=== PATIENT | female | born 1960 | race Caucasian/White ===

== ENCOUNTER 2016-03-16 09:18 | Outpatient (CLI) | payer MEDICARE, MEDICAID ==
[~2016-03-16] VITALS: Ht 175.3 cm; Wt 70.0 kg
[~2016-03-16 09:18] MED LIST: ASPIRIN 81M81 MG/TA2 PO; DIFLUCAN 100MG100 MG PO; DITROPAN 5MG TAB5 MG PO; INVANZ INJ1 G/VIAL IJ; KLONOPIN2 MG PO; LEVOXYL0.05 MG PO; LIORESAL20 MG PO; LIPITOR 10MG10 MG PO; LOVENOX 4040 MG/0.4 SQ; MACROBID100 MG PO; MIRALAX PA17 GM/Dose PO; MULTIPLE VITAMI1 CAP PO; NEURONTIN600 MG/TAB PO; PERCOCET 325 MG1 TAB PO; REMERON30 MG PO; TYLENOL EXTRA500 M1 PO; ULTRAM 50MG TAB50 MG PO; VANCOCIN HCL1 GM IV; VITAMIN C500 MG PO; ZOCOR 10MG10 MG PO; ZOLOFT 100MG100 MG PO
[2016-03-16 09:53] VITALS: BP 127/81; PULSE 93; TEMP 98.3
[2016-03-28] MEDS ORDERED: ZANAFLEX CAPSULE2 MG PO (11:13)
[2016-03-28] MEDS ORDERED: FERRIMIN 150150 M1 PO (11:14)
[2016-03-28] MEDS ORDERED: DAZIDOX10 MG PO (11:15)
[2016-03-28] MEDS ORDERED: XANAX 1MG1 MG (11:16)
[2016-03-28] MEDS ORDERED: KLOR-CON M2020 MEQ PO (11:17)
[2016-03-28] MEDS ORDERED: CULTURELLE IMM1 EACH PO (11:18)
[2016-03-28] MEDS ORDERED: GAS RELIEF MAX166 M1 PO (11:20)
[2016-03-28] MEDS ORDERED: MIRALAX PA17 GM/Dose PO ×2 (11:22)
[2016-03-28] MEDS ORDERED: PROTONIX 40MG T40 MG PO (11:23)
[2016-03-28] MEDS ORDERED: REGLAN 5MG T5 MG/TAB PO (11:24)
[2016-03-28] MEDS ORDERED: ABREVA10% TOP (11:25)
== END 2016-03-16 10:08 | disposition home or self-care (01) ==
LOC: COL.RAD 09:18
DX: Z01.818 Encounter for other preprocedural examination (principal)

== ENCOUNTER → 2016-03-28 | Outpatient (CLI) | payer MEDICARE, MEDICAID ==
[~2016-03-28] VITALS: Ht 175.3 cm; Wt 72.7 kg
[~2016-03-28] MED LIST changes: +ABREVA10% TOP; +CULTURELLE IMM1 EACH PO; +DAZIDOX10 MG PO; +FERRIMIN 150150 M1 PO; +GAS RELIEF MAX166 M1 PO; +KLOR-CON M2020 MEQ PO; +PROTONIX 40MG T40 MG PO; +REGLAN 5MG T5 MG/TAB PO; +XANAX 1MG1 MG; +ZANAFLEX CAPSULE2 MG PO
[2016-03-28 11:31] VITALS: BP 139/89; PULSE 93
[2016-03-28 11:50] VITALS: BP 105/79; PULSE 95
[2016-03-28 12:03] VITALS: BP 112/86; PULSE 80
[2016-03-28 12:10] VITALS: BP 90/60; PULSE 90
[2016-03-28 12:40] VITALS: BP 128/90; PULSE 100
== END ==
LOC: COL.RAD 10:00
DX: C79.89 Secondary malignant neoplasm of other specified sites (principal); C67.5 Malignant neoplasm of bladder neck
CPT/HCPCS: 3748